=== PATIENT | male | born 1960 | race African-American/Black ===

== ENCOUNTER 2021-01-26 13:35 | Emergency (ER) | payer BC, SELFPAY ==
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
[2021-01-26 13:46] VITALS: BP 186/106; PULSE 80; RESP 20; TEMP 36.8; O2SAT 100
[2021-01-26 16:43] VITALS: BP 220/103; PULSE 87; RESP 18; TEMP 36.8; O2SAT 99
[2021-01-26] MEDS: TETANUS,DIPHTHERIA,AC PERTUSSIS ADULT (0.5 ML) BOOSTRIX IM (18:05)
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
[2021-01-26 19:01] VITALS: BP 206/114; PULSE 78; RESP 18; O2SAT 98
== END 2021-01-26 19:05 | disposition home or self-care (01) ==
PROVIDERS: Emergency Provider Emergency Medicine; PCP Internal Medicine
DX: S61.442A Puncture wound with foreign body of left hand, initial encounter (principal); E78.5 Hyperlipidemia, unspecified; Z23 Encounter for immunization; W34.010A Accidental discharge of airgun, initial encounter
CPT/HCPCS: 73130; 90471; 90715; 99283

== ENCOUNTER 2024-02-11 08:29 | Outpatient (CLI) | payer MEDICARE, SELFPAY ==
--- NOTE | ~2024-02-11 | CT_ITS ---
EXAMINATION: CT sinus wo con DATE: 02/11/2024 08:43 INDICATION: Deviated nasal septum TECHNIQUE: Computed tomography (CT) of the paranasal sinuses was performed without intravenous contra st. The dose-length product was 387.90 mGy-cm. Automated exposure control and iterative reconstructio n technique were employed. COMPARISON: None FINDINGS: There is mucosal thickening in the maxillary and ethmoid sinuses. No air-fluid levels. No s ignificant mucoperiosteal reaction. No significant nasal septal deviation. There is hypertrophy of th e inferior turbinates. The ostiomeatal units are partially occluded by soft tissue. Mastoids are pneu matized. IMPRESSION: 1. Mild sinus disease. Reviewed, dictated and finalized at location B. IMPRESSION: 1. Mild sinus disease.
== END 2024-02-11 08:30 ==
LOC: GOSHIMG 08:31
PROVIDERS: PCP Internal Medicine; Visit Provider Nurse Practitioner Family
DX: J34.2 Deviated nasal septum (principal); J34.89 Other specified disorders of nose and nasal sinuses
CPT/HCPCS: 70486

== ENCOUNTER 2024-06-03 09:00 | Outpatient (RCR) | payer MEDICARE, SELFPAY ==
--- NOTE | 2024-03-09 13:45 | BUSTOPEVAL1 ---
Assessment and note entered by Christine Johnson, CUTTING AND PRINTING MACHINE OPERATOR Evaluation Information Assessment Status Evaluation Diagnosis hoarseness R49.0 Subjective Information Patient was referred for an ST evaluation by a doctor with [facility] due to an increase in vocal hoarseness. The patient reported that he has experiences vocal hoarseness for a long time but has noticed an increase in difficulty over the past year. He notices significant problems with his voice after public speaking weekly along with when yelling or overusing his voice with children at his house. He experiences periods of significant vocal hoarseness and has to have vocal rest for few days to notice improvements. He was recently evaluated for significant problems with his sinuses including; polypoid sinus degeneration, nasal polyps, allergic rhinitis, hypertrophy of nasal turbinate, chronic maxillary sinusitis, and chronic ethmoidal sinusitis. The patient reported that he has been doing the Flonase but is unsure exactly home much or how often to use. He is currently doing one spray in each nostril one time per day. Education with patient regarding follow up call with prescribing doctor to clarify how often and how much the patient should be using. Reported Pain Level Pain Score 0: Self Report Assessment ST Clinical Summary Patient was referred for a skilled ST evaluation by a doctor with [facility] due to ongoing difficulty with vocal hoarseness. Patient reported that he began experiencing an increase in vocal hoarseness over the past year. 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 He worked at a [employer] for 34 years and was exposed to many things in the air while working. He reported that he wore a mask but not all of the time. He also reported that he has recently been clearing his throat more frequently. He was recently diagnosed with hoarseness R49.0, polypoid sinus degeneration J33. 1, nasal polyps J33.9, allergic rhinitis J30.9, hypertrophy of inferior nasal turbinate J34.3, chronic maxillary sinusitis J32.0, Chronic ethmoidal sinusitis J32.2. He reported that he experiences more vocal hoarseness after speaking through a service and occasionally will speak without a microphone during services and has to project his voice
--- NOTE | 2024-04-19 10:39 | PCSTNOTE ---
Patient was not seen the week of April 12- due to GEAR TESTER being out of the office.
--- NOTE | 2024-05-13 16:59 | PCSTNOTE ---
Patient called & cancelled scheduled appointment this date
--- NOTE | 2024-06-03 17:22 | BUSTOPDC ---
Assessment and note entered by Christine Johnson, TECHNICAL SERVICES ASSISTANT Evaluation Information Assessment Status Discharge Diagnosis hoarseness R49.0 Subjective Information Patient was referred for an ST evaluation by a doctor with [facility] due to an increase in vocal hoarseness. Prior to treatment the patient reported that he experienced vocal hoarseness for a long time but has noticed an increase in difficulty over the past year. He noticed significant problems with his voice after public speaking weekly along with when yelling or overusing his voice with children at his house. He experienced periods of significant vocal hoarseness and had to have vocal rest for a few days to notice improvements. He was evaluated for significant problems with his sinuses including; polypoid sinus generation, nasal polyps, allergic rhinitis, hypertrophy of nasal turbinate, chronic maxillary sinusitis, and chronic ethmoidal sinusitis. The patient reported that he has been doing the nasal spray more frequently now versus when began skilled St treatment. The patient has completed a total of [address] treatments to target vocal hoarseness and loss of voice with significant improvements noted through minimal vocal hoarseness and no reported loss of voice. The patient is very happy with his current quality of voice and is going to continue to vocal function exercise program through the maintenance schedule to continue to benefit from program post treatment. Reported Pain Level Pain Score 0: Self Report Pain Score 0: Self Report Pain Score 0: Self Report Pain Score 0: Self Report Pain Score 0: Self Report Pain Score 0: Self Report Pain Score 0: Self Report Pain Score 0: Self Report Pain Score 0: Self Report Pain Score 0: Self Report Pain Score 0: Self Report Assessment ST Clinical Summary Patient was referred for a skilled ST evaluation by a physician with [facility] due to ongoing difficulty with vocal hoarseness and loss of voice. Patient reported that he began experiencing an increase in vocal hoarseness over
== END 2024-06-03 20:00 | disposition home or self-care (01) ==
LOC: CHSST 09:00
PROVIDERS: Visit Provider Nurse Practitioner Family
DX: R49.0 Dysphonia (principal)
CPT/HCPCS: 92507; 92524